=== PATIENT | female | born 1995 | race Caucasian/White ===

== ENCOUNTER → 2020-11-14 08:59 | Outpatient (CLI) | payer OTHER, SELFPAY ==
--- NOTE | ~2020-11-14 | US_ITS ---
US breast RT complete INDICATION: Right breast lump for one month TECHNIQUE: Dedicated complete right breast ultrasound COMPARISON: No prior studies for comparison. FINDINGS: The right breast is composed of normal heterogeneous echotexture without focal solid or cys tic mass. IMPRESSION: 1: Normal right breast ultrasound. BI-RADS CATEGORY 1 - NEGATIVE Reviewed, dictated and finalized at location A.
== END ==
PROVIDERS: Visit Provider Advanced Practice Midwife
DX: N63.10 Unspecified lump in the right breast, unspecified quadrant (principal)
CPT/HCPCS: 76641

== ENCOUNTER 2022-11-18 06:52 | Day surgery (SDC) | payer OTHER, SELFPAY ==
[2022-11-10 12:34] VITALS: BMI 20.5
--- NOTE | 2022-11-10 12:39 | PC.NURSE ---
Report to the Outpatient Waiting Room, entrance under the green pavilion located off [facility], at time 0730 on date 11/18/22. Planned Procedure Time: 0930. Time changes happen often and if your time is changed the preop area will call you the afternoon before. - You and your visitor will be asked to self-screen and do not enter if you have any COVID symptoms. - A mask is optional within the hospital at this time. Patients may have clear liquids (water, carbonated beverages, clear teas, apple juice) until 3 hours prior to surgery with a maximum of 20 ounces. - No food from midnight until time of surgery Take the following medications with a SIP of water the morning of surgery: NONE DO NOT STOP ANY OF YOUR OTHER PRESCRIPTION MEDICATIONS PRIOR TO SURGERY EXCEPT THE FOLLOWING Medications to discontinue per physician: N/A Date to take last dose: N/A Please no make-up, nail lux[place]bourg[place], hairspray, perfume, deodorant, or body powder the day of surgery. No jewelry (including any body piercings) or valuables the day of surgery, leave them at home. Please take a shower or bath the night before, or the morning of, surgery with an antibacterial soap. Wear comfortable, loose fitting clothing. - Jewelry must be removed prior to entering the operating room. Rings and piercings that are not removed may be cut off. - The hospital will not accept responsibility for valuables. - Please leave all valuables, including medications, at home the day of surgery. If you are going home after surgery, a licensed rear load truck driver must drive you home. - NO public transportation without another adult if you receive anesthesia. - We recommend that an adult stay with you for 24 hours following discharge. - We also recommend that you do not drive, make important decision, drink alcoholic beverages, or take any drugs that were not prescribed by your health care provider for at least 24 hours after your discharge time. Follow any additional instructions given to you from your surgeon. If you or anyone in your household have experienced Covid symptoms in the past week, please notify your surgeon or the nurse liaison at the phone number below for possible testing. Telephone instructions given to PT Markell MURPHY and asked if any additional questions and then verbalized understanding. Patient advised to call surgeon office or pre surgery nurse liaison [phone] if any additional questions.
[2022-11-18] VITALS (9 sets, daily range): BP systolic 89–122; BP diastolic 45–71; PULSE 48–69; RESP 12–18; TEMP 36.5–36.8; O2SAT 100; BMI 19.8
[2022-11-18] MEDS: LACTATED RINGERS 1,000 ML 30 ML IV CONT ×2 (07:55→12:36)
[2022-11-18] MEDS: ACETAMINOPHEN 500 MG TABLET 1000 MG PO (08:08)
[2022-11-18] MEDS: KETOROLAC 15 MG/ML VIAL (*BKC) IV PUSH (08:08)
--- NOTE | 2022-11-18 08:12 | SUR.PREOP ---
0812- Notified patient and mother procedure start time will be delayed. Patient and mother verbalized understanding and denying needs at this time.
--- NOTE | 2022-11-18 09:52 | P.PNAN_ITS ---
Anes - Initial Pre Proc Eval Procedure: Operation Date: 11/18/22 09:30 Proposed Procedures p Diagnostic Laparoscopy - Kati Grant MD Date/Time: 11/18/22 09:52 Surgeon: Kati Grant MD Pre Op Diagnosis: pelvic pain Patient Data Age: 27 Gender: F Height: 1.57 m Weight: 49.3 kg Last Vital Signs Temp 98.3 F 11/18/22 07:40 Pulse 69 11/18/22 07:40 Resp 14 11/18/22 07:40 BP 122/71 11/18/22 07:40 Pulse Ox 100 11/18/22 07:40 O2 Del Method Room Air 11/18/22 07:40 Allergies Allergy/AdvReac Type Severity Reaction Status Date / Time pistachio nut Allergy Mild Rash Verified 11/18/22 08:07 Home Medications Medication Instructions Recorded Confirmed Type celecoxib 200 mg capsule 200 mg PO BID PRN Pain 11/10/22 11/18/22 History Patient hx anesthesia problems: none Family hx anesthesia problems: none Results Review: All pre-operative results and documents have been reviewed as part of the pre- operative evaluation. [facility] Social History Social History Smoking status: Never smoker Alcohol intake: current Alcohol use details: 1/MONTH Substance use: never Substance use type: does not use Living arrangements: alone Spiritual care concerns: No Anes - Eval Final PreProcedure Day of Procedure 11/18/22 09:52 Patient weight: normal Heart: regular rate and rhythm Lungs: clear to auscultation Airway: Mallampati scale class II Neurological: alert and oriented Last oral intake: >/= 8 hours ASA classification: II Emergent: no Anesthetic plan: proceed Anesthesia type and monitoring: general GIVS and standard monitoring Results Review: All pre-operative results and documents have been reviewed as part of the pre- operative evaluation. Informed Consent: The patient's anesthetic plan and its attendant risks and benefits were discussed with the patient/family/POA. Questions were solicited and answers provided to the satisfaction of the patient/family/POA.
--- NOTE | 2022-11-18 11:08 | WPDHPUPDATE1 ---
History and Physical Update Update Date/Time: 11/18/22 11:08 History and Physical has been reviewed, including an updated exam of the patient. There are NO changes in the patient's condition. Risks, benefits, and alternatives have been discussed and questions answered. Patient agrees to proceed with procedure.
--- NOTE | 2022-11-18 12:44 | P.OP_ITS ---
Procedure Note - Detailed Date of Procedure 11/18/22 Pre-op Diagnosis pelvic pain Post-op Diagnosis Same (Endometriosis) Procedure Performed Diagnostic laparoscopy, radical resection endometriosis and pelvic peritoneum, laparoscopic bilateral salpingectomy, endometrial ablation with hysteroscopy. Surgeon Kati Grant MD Anesthesia General Indications Pelvic pain Findings Endometriosis with lesions throughout the posterior cul-de-sac, normal-appearing tubes and ovaries. Rectum was adherent to left pelvic sidewall. There was small size spots were scattered through the posterior deep cul-de-sac and the right hemipelvis. There was some small implants on the anterior posterior cul-de-sac over the bladder. Normal-appearing vulva vagina and cervix. Normal- appearing endometrium. Description of Procedure The patient was taken to the operating room. She was prepped and draped in the dorsal lithotomy position after induction general anesthesia. A 5 mm incision was made with a scalpel on the abdominal skin in the left upper quadrant of the abdomen. A 5 mm trocar was inserted into the intra-abdominal cavity under direct visualization the scope. In the same fashion, a 5 mm left lower quadrant trocar was inserted and a 5 mm infraumbilical trocar was inserted. The left ovary ws suspended to the anterior pelvic wall bilaterally. This was done with a Avery-Evon suture Passer that was inserted in the a left lower quadrants and into the abdomen. Using an 0 Vicryl, the needle was passed through the ovary, the suture was released, the sutures grasped on the other side of the ovary and drawn up through the abdominal wall to the outside and held in place with a hemostat. A RADHA manipulator is placed in the intrauterine cavity. This was done with the speculum and tenaculum. The bulb was inflated with air. The peritoneum in the posterior cul-de-sac was removed from the left hemipelvis. This was done using sharp and blunt dissection along with cautery. The ureter on the left was identified and ureterolysis was performed from the pelvic brim down to the uterine arteries. Laterally the peritoneum was removed from the suspensory ligament and the infundibulopelvic ligament moving medially to the rectum. Essentially All the peritoneum in the posterior cul-de-sac was removed on the left. areas on the deep posterior cul-de-sac and the right pelvic sidewall were cauterized. There were numerous small endometrial implants that were cauterized. There were some areas and the anterior cul-de-sac 2 were small and gently cauterized as well as on the right ovary. The pelvis was irrigated vigorously. a sheet ofInterceed were placed in the left hemipelvisese The pneumoperitoneum was reduced. The trocars were removed. Skin was closed with subcuticular 4 micro. The patient's incisions were covered with Dermabond. She was taken recovery room in stable condition. Sponge lap and needle counts were correct x2. Estimated Blood Loss -20.0 Urine Output -25.0 Complications No immediate complications Condition Stable Disposition Same day
[2022-11-18] MEDS: ONDANSETRON INJ 4 MG/2 ML VIAL IV PUSH (14:09)
[2022-11-18] MEDS: oxyCODONE HCL (*CRX) 5 MG TAB IR PO (14:27)
== END 2022-11-18 15:10 | disposition home or self-care (01) ==
PROVIDERS: PCP Internal Medicine; Visit Provider Obstetrics & Gynecology
PROC: (CPT 49320; principal; 2022-11-18 09:30)
DX: N80.319 Endometriosis of the anterior cul-de-sac, unspecified depth (principal); N80.329 Endometriosis of the posterior cul-de-sac, unspecified depth; N80.399 Endometriosis of the pelvic peritoneum, other specified sites, unspecified depth; N73.6 Female pelvic peritoneal adhesions (postinfective); R10.2 Pelvic and perineal pain
CPT/HCPCS: 58662; 88305; A9270; J1100; J1170; J1885; J2250; J2405; J2704; J2710; J3010; J7030; J7120

== ENCOUNTER 2025-01-24 02:16 | Day surgery (SDC) | payer OTHER, SELFPAY ==
[2025-01-23 08:49] VITALS: BMI 22.4
--- NOTE | 2025-01-23 09:20 | PC.NURSE ---
Report to the Outpatient Waiting Room, entrance under the green pavilion located off [facility], at time __06:00AM on date _01/24/25 . Planned Procedure Time: _07:30AM .? Time changes happen often and if your time is changed the preop area will call you the afternoon before. - You and your visitor will be asked to self-screen and do not enter if you have any COVID symptoms. Please call surgeon if you need to reschedule. - A mask is optional within the hospital at this time. Patients may have clear liquids (water, carbonated beverages, clear teas, apple juice) until 3 hours prior to surgery with a maximum of 20 ounces. - No food from midnight until time of surgery and no smoking, or chewing tobacco (or any form of nicotine). No chewing gum, candy or mints. Take only the following medications with a SIP of water on the morning of surgery: ___ALBUTEROL PRN DO NOT STOP ANY OF YOUR OTHER PRESCRIPTION MEDICATIONS PRIOR TO SURGERY EXCEPT THE FOLLOWING Hold all vitamins and supplements for 3 days per anesthesiologist. Medications to discontinue per physician NONE Date to take last dose___NONE Please no make-up, nail sl[place], hairspray, perfume, deodorant, or body powder the day of surgery.? No jewelry (including any body piercings) or valuables the day of surgery, leave them at home.? Please take a shower or bath the night before, or the morning of, surgery with an antibacterial soap.? Wear comfortable, loose fitting clothing.? Children are encouraged to wear pajamas. - Jewelry must be removed prior to entering the operating room.? Rings and piercings that are not removed may be cut off. - The hospital will not accept responsibility for valuables.? - Please leave all valuables, including medications, at home the day of surgery. If you are going home after surgery, a licensed armored car driver must drive you home.? - NO public transportation without another adult if you receive anesthesia. - We recommend that an adult stay with you for 24 hours following discharge. - We also recommend that you do not drive, make important decision, drink alcoholic beverages, or take any drugs that were not prescribed by your health care provider for at least 24 hours after your discharge Follow any additional instructions given to you from your surgeon. Telephone instructions given to __MEGAN and asked if any additional questions and then verbalized understanding. Patient advised to call surgeon office or pre surgery nurse liaison [phone] if any additional questions.
[2025-01-24] VITALS (7 sets, daily range): BP systolic 100–117; BP diastolic 45–82; PULSE 64–90; RESP 11–20; TEMP 36.2–36.8; O2SAT 100
--- OUTSIDE RECORDS SUMMARY | 2025-01-24 02:33 | XMS_ITS | Data Portability ---
Author Organization [facility] Address [address] [place] [address] Care Team Providers Care Aba Therapist Name Role Phone BRYANT HAYNES Primary Care Provider [phone] Assessment Encounter Date Assessment Date Assessment LastModified by Organization Details LastModified Time 11/26/2023 11/26/2023 Annual gynecological exam performed. Patient will come back in a year unless there are new symptoms. [email or web address] Not available 11/26/2023 13:51:53 Plan of Treatment Reminders Order Date Submit Date Provider Last Modified By Organization Details Last Modified Time Details Appointments SURG Diagnosti c Lap 2024 07:30A Juan GRANT MD Not available Not available Not available SURG POST OP 2024 04:00P Juan GRANT MD Not available Not available Not available Lab None recorded. Referral None recorded. Procedures None recorded. Surgeries laparosco py, diagnosti c (SURG) 2024 025 [id number] [facility], [address], [place], [address], 12/12/2024 11:01:09 Imaging US, pelvis 2024 025 [email or web address] [place] [facility] [address], [place], [address], 11/28/2024 21:37:50 US, transvagi nal 2024 025 [email or web address] [facility], [place], [address], 11/28/2024 21:37:50 US, pelvis, complete 2024 025 [email or web address] [facility], [place], [address], 12/08/2024 10:46:19 Medication Orders Lessina 0.1 mg-20 mcg tablet 2023 024 [id number], [address], [place], [place], [id number], 11/26/2023 14:08:35 Patient TargetsNo targets recorded. Patient InstructionsNo instructions recorded. Reason for Referral None Reported. 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 Elect pinashahriar perez neris d by Mario Elmore , CT on 2023 at 6:18 PM ----- ----- ----- ----- ----- ----- ----- ----- ----- ----- ----- ----- ----- ----- ----- ----- ----- ---- COMME NT: This speci men was revie wed by a Cytot echno logis t and/o r Patho logis t (as indic ated in this repor t) after evalu ation using the Thinp rep Imagi ng Syste m. CLINI MEGHAN INFOR MATIO N: Menst rual Statu s: LMP (if appli cable ): Clini meghan Histo ry/Pr eviou s Pap: Type of Neopl reginald (if appli cable ): Signi fican t Clini meghan Findi ngs: Other Histo ry: Hormo kristin (if appli cable ): PAP EDUCA IRIS L NOTE: The Pap Test is a scree christine test with an inher ent false negat benny rate. Liqui d-bas ed sampl ing may decre ase, but will not elimi katarzyna, false negat benny resul ts. A negat benny resul t does not precl ude the prese nce and/o r devel opmen t of disea se, since the prese nce of abnor mal cells in the sampl e depen ds on the locat ion of the lesio n and sampl ing techn ique. Christopher nued regul ar scree christine is the best metho d of cance r preve ntion . If repor cordell cytol ogic findi ng do not corre late with physi meghan and/o r histo rical findi ngs, furth er inves tigat ion is recom chapo d, as clinjeffery smalls nted. Not Available [facility] (Lab) [address], [place], [address], 12/01/2023 19:22:17 11/29/19 25 11/28/2024 US, pelvi s No observ ation record ed. [email or web address] [place] [address], [place], [address], 11/28/2024 17:30:12 11/29/19 25 11/28/2024 US, trans vagin al No observ ation record ed. [email or web address] [place] [address], [place], [address], 11/28/2024 17:30:26 11/29/19 25 11/28/2024 US, pelvi s No observ ation record ed. [email or web address] [address] [address], [place], [address], 12/11/2024 16:38:00 Result Notes None recorded. 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 10:36:[address] Concept Completed 201911/06/2020 Encntr for routine child health exam w/o abnormal findings ;Recorde d Elsewher e: No Locat ion: [facility] S ource: [facility] [employer] agusto: N Beccati ce ID: 0001 Mathew lable Time: 08:45:[address] [facility] 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 1 10:36:54 Problem Notes None recorded. Procedures Surgical History Date Name Laterality Status Provider Name and Address Organization Details Recorded Time 11/26/19 24 Date of Last Pap Smear completed Aixa Greco [facility] 11/23/2024 15:02:20 11/19/19 23 LAPAROSCOPY, DIAGNOSTIC (SURG) completed Ashley Peterson [facility] 11/19/2022 10:11:48 06/15/20 16 colonoscopy completed Aicha Recio [facility]- [address], [place], [address], [facility] 06/30/2022 15:54:34 11/21/19 16 Date of Last Colonoscopy completed Maxine Montes [facility] 06/30/2022 15:47:53 Imaging Results None recorded. Procedure Notes None recorded. Medical Equipment None Reported. Allergies Allergen ID Allergen Name Allergen Category Reaction Reaction Severity Criticality Documentation Date Start Date Code Code System Note Provider Name and Address Organization Details Recorded Time pistachio nut allergeni c extract food Not available Not available Not available 11/23/2024 [address] [facility] 5 15:01:41 Medications Name Sig Start Date Stop Date Status Note LastModified by Organization Details LastModified Time celecoxib 200 mg capsule TAKE 1 CAPSULE BY MOUTH TWICE DAILY active Not Available Not Available No t Available azithromy que 250 mg tablet TAKE 2 TABLETS BY MOUTH FOR 1 DAY THEN TAKE 1 TABLET BY MOUTH DAILY FOR 4 DAYS 11/23 completed Not Available Not Available Not Available benzonata te 200 mg capsule 11/23 completed Not Available Not Available Not Available hydrocodo ne 5 mg-acetam inophen 325 mg tablet TAKE 1 TABLET BY MOUTH EVERY 4 HOURS NEEDED FOR PAIN 11/25 completed Not Available Not Available Not Available famotidin e 40 mg tablet 11/25 completed Not Available Not Available Not Available Nexium 20 mg capsule,d elayed release take 1 capsule by oral route every day at least 1 hour before a meal swallowi ng whole. Do not crush or chew granules . 11/06 completed Prescrib ed Phuong e: Yes Loca tion: Diane cohen [facility] odify By: sindy marrufo DateTime : 09/09/19 16 09:00:00 AM Not Available Not Available Not Available albuterol sulfate HFA 90 mcg/actua tion aerosol inhaler INHALE 2 PUFFS BY MOUTH EVERY 4 HOURS NEEDED FOR WHEEZING 11/25 completed Not Available Not Available Not Available fluticaso ne propionat e 50 mcg/actua tion nasal spray,eulogio pension SHAKE LIQUID AND USE 2 SPRAYS IN EACH NOSTRIL DAILY 11/25 completed Not Available Not Available Not Available amoxicill in 875 mg-potass ium clavulana te 125 mg tablet TAKE 1 TABLET BY MOUTH TWICE DAILY FOR 7 DAYS 11/23 completed Not Available Not Available Not Available Lessina 0.1 mg-20 mcg tablet TAKE 1 TABLET BY MOUTH EVERY DAY SKIPPING PLACEBOS active Not Available Not Available No t Available Nexium 11/06 completed Not Available Not Available Not Available ProChambe r USE WITH ALBUTERO L INHALER 12/08 completed Not Available Not Available Not Available Hypercare 15 % (w/v) topical liquid 06/30 completed Not Available Not Available Not Available baclofen 5 mg tablet TAKE 1 TABLET BY MOUTH ON DAY 2 OF MENSTRUA L CYCLE IF NEEDED. MAY TAKE WITH AN NSAID. MAY CAUSE DROWSINE SS 11/25 completed Not Available Not Available Not Available Vitals Date Recorded Body height Body mass index (BMI) Body weight Systolic And Diastolic Provider Name and Address Organization Details Last Updated DateTime 11/23/2024 157.48 cm 19.9 kg/m2 66001.57 g 118/70 mm[Hg] Aixa Greco [facility] 11/23/2024 15:02:11 Date Recorded Body height Body mass index (BMI) Body weight Systolic And Diastolic Provider Name and Address Organization Details Last Updated DateTime 11/25/2022 157.48 cm 19.8 kg/m2 86413.98 g 142/78 mm[Hg] Karen Mitchell [facility] 11/25/2022 16:22:38 Date Recorded Body height Body mass index (BMI) Body weight Systolic And Diastolic Provider Name and Address Organization Details Last Updated DateTime 11/26/2023 157.48 cm 20.3 kg/m2 46135.75 g 119/81 mm[Hg] Julieta [facility] 11/26/2023 13:54:28 Date Recorded Body height Body mass index (BMI) Body weight Systolic And Diastolic Provider Name and Address Organization Details Last Updated DateTime 12/08/2024 157.48 cm 20.5 kg/m2 60399.35 g 109/71 mm[Hg] Julieta [facility] 12/08/2024 11:57:12 Social History Question Answer Notes LastModified by Organizat ion Details LastModified Time Tobacco Smoking Status Never Smoker Viridiana Stephy [facility] 11/25/2022 16:14:01 If You Are , What Was Your Level Of Alcohol Consumption Prior To ? None [email or web address] Information not available 11/25/2022 How Many Years Have You Consumed Alcohol? 7 Information not available 06/30/2022 Are You Blind Or Do You Have Difficulty Seeing? No [email or web address] Information n ot available 11/08/2020 What Is Your Level Of Caffeine Consumption? Moderate [email or web address] Information not available 11/08/2020 How Much Tobacco Do You Chew? None Information not available 06/30/2022 In The 14 Days Before Symptom Onset, Have You Had Close Contact With A Laboratory-confirm ed COVID-19 While That Case Was Ill? No [email or web address] Information n ot available 11/08/2020 In The 14 Days Before Symptom Onset, Have You Had Close Contact With A Person Who Is Under Investigation For COVID-19 While That Person Was Ill? No [email or web address] Information not available 11/08/2020 Have You Been To An Area Known To Be High Risk For COVID-19? No Information not available 11/08/2020 Are You Deaf Or Do You Have Serious Difficulty Hearing? No Information not available 11/08/2020 What Type Of Diet Are You Following? REGULAR [email or web address] Information n ot available 11/08/2020 What Is The Highest Grade Or Level Of School You Have Completed Or The Highest Degree You Have Received? [id number] Information not available 06/30/2022 Are There Any Guns Present In Your Home? No Information not available 06/30/2022 Have You Ever Been Counseled For Unhealthy Alcohol Use? No [email or web address] Information not available 11/25/2022 Do You Use Protection During Sex? Always Information not available 06/30/2022 Do You Use Your Seat Belt Or Car Seat Routinely? Yes [email or web address] Information not available 11/08/2020 Do You Have Smoke And Carbon Monoxide Detectors In Your Home? Yes [email or web address] Information not available 11/08/2020 How Much Tobacco Do You Smoke? No Information not available 06/30/2022 Do You Use Sunscreen Routinely? Yes [email or web address] Information not available 11/08/2020 Has Tobacco Cessation Counseling Been Provided? No [email or web address] Information not available 11/25/2022 Have You Used IV Drugs? No Information not available 06/30/2022 Do You Have Difficulty Walking Or Climbing Stairs? No [email or web address] Information not available 11/25/2022 Sex: Unknown Functional Status Question Answer Note LastModified by Organizat ion Details LastModified Time Do you use any illicit or recreational drugs? No Information not available 11/08/2020 Do you or have you ever used any other forms of tobacco or nicotine? No [email or web address] Information not available 11/25/2022 What is your level of alcohol consumption? Occasional [email or web address] Information not available 11/08/2020 Are you able to walk? YESWOREST [email or web address] Information not available 11/08/2020 Are you able to care for yourself? 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 No [email or web address] Information not available 11/25/2022 What is your exercise level? Moderate Information not available 06/30/2022 Mental Status Question Answer Note LastModified by Organization D etails LastModified Time Do you feel stressed (tense, restless, nervous, or anxious, or unable to sleep at night)? [id number] [email or web address] Information not available 11/08/2020 Family History Relationship Description Onset Age of this Age Resolved Age Notes LastModified by Organization Details LastModified Time Maternal Grandmother Carcinoma in situ of breast [email or web address] Not available 11/11 11:22:56 Maternal Grandmother Malignant tumor of breast [email or web address] Not available 06/12 15:47:50 Mother Hypertensive disorder [email or web address] Not available 06/12 15:47:50 Maternal Grandfather Disorder of lung vschroedter Not available 06/12 15:47:50 Maternal Grandfather Hypertensive disorder [email or web address] Not available 06/12 15:47:50 Maternal Grandfather Heart disease [email or web address] Not available 06/12 15:47:50 Maternal Grandfather Disorder of thyroid gland vschroedter Not available 06/12 15:47:50 Medical History Condition Response Anemia Y GI Problems Y Gynecological History Statement/Question Response Abnormal Pap N Flow Moderate Date of LMP 11/09/2024 N On BCP's at Conception? N STIs/STDs N Was last menstrual period normal N HPV Vaccine N Duration of Flow (days) 5 Current Control Method BCPs Date of control 07/12/2019 Are cycles usually normal Y Date of Last Colonoscopy 11/21/2015 Sexually Active? Y Condoms Menses Monthly N Age of first menstrual cycle 14 Date of Last Pap Smear 11/26/2023 Sexual Problems? N LMP Approximate Desired Control Method BCPs N Obstetrics History GPAL:G 0 P 0 0 0 0 Type Value Living 0 Total 0 Past Encounters Encounter ID Performer Location Encounter Start Date Encounter Closed Date Diagnosis/Indication Diagnosis SNOMED-CT Code Diagnosis ICD10 Code Diagnosis Note [id number] Aicha Recio [facility] [address] [address] 11/09/2019 09:38:49 11/09/2019 14:20:12 Secondary dysmenorrhea 34302712 N94.5 Z30.49 Patient is here today for a medicaton check of control. She voices goals of therapy have been met with use of this therapy. She denies neg side effects. She is eating, drinking, sleeping well; moods are stable & periods are well regulated. Wishes to continue this method of BC. Appropriat e to continue this medication . Total time of virtual-ZO OM visit was approx 15 mins with >50% consisting of counseling , education of patient's plan of care. [id number] [facility] [address],[place] [address] 11/06/2020 10:15:13 11/06/2020 11:13:54 Breast lump [id number] N63.0 [id number] Aicha Recio [facility] [address],[place] [address] 06/30/2022 15:32:47 07/02/2022 15:04:59 Pain in pelvis 77077511 R10.2 Update USConsider premedicat ion with NSAID and may use muscle relaxer at HS on day 2 of menstrual cycle.Coun seled on these medication s & their use.Consid er updated labs if needed moving forward. [id number] Keith Grant MD [facility] [address],[place] [address] 07/07/2022 11:20:25 07/07/2022 14:53:37 Pain in pelvis 11314319 R10.2 [id number] MISHA [facility] [address] [address] 07/15/2022 16:43:30 07/15/2022 18:20:52 Secondary dysmenorrhea 54916102 N94.5 Z30.49 Today we reviewed US which was wnl.She had not had a chance to complete full pre-medica tion regimen previously discussed. Her cycle started 4 days earlier than expected & the Celebrex wasn't ready in time.Does feel the Baclofen helped for a few hours.Hope ful that adding the Celebrex 2 days prior to onset of her cycle will help predictabl e dysmenorrh ea.We agreed she would reach out via port & let us know if pre-medica tion regimen worked.If she is happy with this then we can continue to use monthly at the times of menses.If she feels this is not meeting her goals we agreed upon restarting the previous BCP that she was on which did help similar issues on the past. Lessina /20mcg pill & then a Med check in 2-3mos will be required. Time spent in visit is a total of 15 mins with at least 50% of visit consisting of counseling and review of plan of care. [id number] Keith Grant MD [facility] [address] [address] 10/08/2022 16:47:33 10/08/2022 18:12:30 Pain in pelvis 64725393 R10.2 this patient is a 27-year-ol d female who presents for pelvic pain. She has severe dysmenorrh ea. She has been treated with control pills in the past but continues to have pain. She has a family history of endometrio sis. We talked about her symptoms and they were consistent with endometrio sis. We spent 40 minutes face-to-fa ce. More than 50% was counseling we talked about endometrio sis, etiology, natural history, treatment. We talked about diagnostic laparoscop y in detail we talked about the procedure, incisions, recovery, images. We shared images of the procedure. She is adrien perez diagnostic laparoscop y. She will contact us if she is ready to move forward. [id number] Keith Grant MD [facility] [address],[place] [address] 11/11/2022 17:07:29 11/11/2022 18:13:20 Pain in pelvis 99628425 R10.2 this patient is a 27-year-ol d female who presents for pelvic pain. She has severe dysmenorrh ea. we have agreed to proceed with diagnostic laparoscop y. She understand s risks, benefits, and alternativ es. She has completed the informed consent process and is ready to proceed. [id number] Keith Grant MD [facility] [address],[place] [address] 11/20/2022 09:58:25 11/20/2022 10:02:04 [id number] Keith Grant MD [facility] [address],[place] [address] 11/25/2022 16:13:31 11/25/2022 17:22:13 Endometriosis of pelvis 95709161 N80.9 this patient is a 27-year-ol d female with endometrio sis. We spent more than 40 minutes face-to-fa ce. I counseled her extensivel y on adjunct treatment for endometrio sis. We talked about her biopsy results. She was given written informatio n about adjunct treatment. We talked about the risks and benefits of each. We talked about retrograde menstruati on in continuous contracept ion. About childbeari ng. Talked about the natural history and course of endometrio sis. She is going to consider her treatment options and let us know what she is going to proceed with. Likely be continuous oral contracept benny pills, combined oral contracept benny pills. [id number] [facility] [address],[place] [address] 11/26/2023 13:31:58 11/30/2023 14:48:03 Gynecologic examination 37106539 Z01.419 Take Calcium with Vitamin D 1200mg daily if not receiving in daily diet. It is strongly advised to have an annual flu shot and up can obtain at most pharmacies . If you have not had a TDap shot in the last 10 years you should obtain one as well. Discussed with patient & provided with informatio n regarding Gardisil vaccine to prevent the 4 strains for HPV that cause cervical cancer if under age 26. Encourage safe sexual practices, to use condoms and limit partners if not already in a monogamous relationsh ip. Do monthly self breast exams. Have mammogram yearly or every other year depending on family history. BRCA testing is now available for patients with strong genetic history of female cancer. If interested contact the office. Engage in daily exercise of low impact aerobic exercise 45-60 minutes 4-5 times weekly. Avoid tobacco and illicit drugs as well as using moderation with alcohol intake less than 1-2 8 oz beverages daily. This lifestyle behavior pattern will lead to less health conditions and longer life span. If BMI greater than 25 weight watchers or dietary consult advised. Patient received above instructio ns, and questions have been answered. If you have any questions please call or respond to this email. Patient was made aware of the patient portal and may obtain a paper copy of today's plan if desired. Pap sentSTD Screen declinedGe netic Screen discussedC olon Screen naDexa Screen naRoutine Labs na Contracept ion care management [id number] Z30.9 Happy on OCPRF sent x 1yr [id number] Keith Grant MD [facility] [address] [address] 11/23/2024 14:42:19 11/23/2024 15:53:25 Pain in pelvis 21307152 R10.2 Reviewed endometrio sis in general, symptoms attributab le to it, and potential effects on future fertility. Discussed chronic nature of disease, and frequent need for suppressio n until menopause. Reviewed medical therapies (pros/cons , risks/bene fits of each) and surgical approaches to treatment, including conservati ve procedures and definitive surgery.Re commended updated pelvic ultrasound and f/u with to further discuss treatment options (hormonal vs surgical). Patient may be interested in Depo Provera or Mirena IUD.Contac t clinic if pelvic pain increases in frequency or intensity. Also notify clinic of any new symptoms associated with pelvic pain. [id number] Keith Grant MD [facility] [address] [address] 11/28/2024 16:57:11 11/28/2024 17:33:25 Pelvic and perineal pain 805594655 R10.2 this patient is a 27-year-ol d female who presents for pelvic pain. She has severe dysmenorrh ea. we have agreed to proceed with diagnostic laparoscop y. She understand s risks, benefits, and alternativ es. She has completed the informed consent process and is ready to proceed. [id number] Keith Grant MD [facility] [address] [address] 12/08/2024 11:21:56 12/08/2024 12:30:21 Pain in pelvis 06375037 R10.2 Endometrio sis (clinical) 453352811 N80.9 this patient is a 29-year-ol d female. She has recurrent pelvic pain and a history of endometrio sis. She has had surgically removed endometrio sis and biopsy confirmed endometrio sis. We discussed treatment options again today. Patient would like to proceed with diagnostic laparoscop y. The patient understand s the procedure. The procedure was described to the patient in great detail. the patient also understand s the risks. The risks were also explained in detail. She understand s that injuries May occur during surgery. She understand s these injuries can result in hospitaliz ation, more surgery, and severe illness. She understand s there is risk of hemorrhage and infection. I spent over 20 minutes on the patient's care in total. Health Concerns Section Related Observation LastModified by Organization Detai ls LastModified Time None Recorded Concern Status LastModified by Organization Details LastModified Time None Recorded Advance Directives Directive None Recorded Payers Insurance Date Sequence Insurance Name Policy Number Policy Ramirez Covered Member ID Ramirez Member ID Guarantor Name 01/21/2025 1 [employer] [id number] Natalie Catherine [id number] Natalie Jin 11/09/2019 1 [facility] - [employer] CHOICE POS II (POS) Eddie Catherine [id number] Natalie [facility] 11/09/[address] [facility] - AETNA (PPO) [id number] Eddie Jin [id number] Natalie [facility] 11/09/[address] [facility] Gisell Morgan [facility] [id number] [facility] 11/09/[address] [facility] Eddie [facility] [id number] [facility] 06/18/[address] [facility] Gisell Morgan [facility] [id number] [facility] 12/08/2024 1 [facility] [id number] Natalie Jin [id number] Natalie [facility] 12/08/2024 1 [facility] [id number] Natalie Cohen [facility] [id number] [facility] Notes Date Note Type Note Provider Name and Address Organization Details Recorded Time 11/25/2022 text/html this patient is a 27-year-old female with endometriosis. We spent more than 40 minutes [id number]. I counseled her extensively on adjunct treatment for endometriosis. We talked about her biopsy results. She was given written information about adjunct treatment. We talked about the risks and benefits of each. We talked about retrograde menstruation in continuous contraception. About childbearing. Talked about the natural history and course of endometriosis. She is going to consider her treatment options and let us know what she is going to proceed with. Likely be continuous oral contraceptive pills, combined oral contraceptive pills. Keith Grant MD [address], [place], [address], [facility] 11/25/2022 17:17:29 11/26/2023 text/html Annual GYNReport ed bypatient.Menstrual cycle:Normal menses Urinary symptoms:No hematuria; No incontinence Vulva:No genital lesion Vagina:Normal vaginal discharge Breast:No breast pain; No breast lump; No nipple discharge Current Contraception:Satisf ied with current contraception; Oral contraceptives Sexual complaints:No sexual complaints; No pain during intercourse; Normal libido Menopausal Symptoms:No menopausal symptoms; Normal vaginal lubrication Psychological symptoms:No depression; No anxiety; No PMDD Preventive measures:Encourage self breast examination; Encourage regular exercise; Encourage no tobacco use; Encourage regular mammograms starting age 40 MISHA Marrufo- [address], [place], [address], [facility] 11/30/2023 14:05:41 11/23/2024 text/html 29 y/o female presents with c/o severe pelvic pain during ovulation and first two days of period over the past three months.Patient reports history of endometriosis and had diagnostic laparoscopy performed by Dr. Grant in 2022.Patient states that she then tried an OCP continuously for one year, which helped her pain. Patient reports that she stopped taking the pill because she did not like how the pill made her feel and the mood swings it caused.Cycles q28 days, last 5 days, with moderate to heavy flow.Patient states that she does not prefer to be on control.Neg urinary sx'sNeg GI sx'sNeg N/V/F/C/DNeg Vag d/c, odor, irritation, itching DUARTE TREADWELL NP [address], [place], [address], [facility] 11/23/2024 15:37:48 12/08/2024 text/html this patient is a 29-year-old female. She has recurrent pelvic pain and a history of endometriosis. She has had surgically removed endometriosis and biopsy confirmed endometriosis. We discussed treatment options again today. Patient would like to proceed with diagnostic laparoscopy. The patient understands the procedure. The procedure was described to the patient in great detail. the patient also understands the risks. The risks were also explained in detail. She understands that injuries May occur during surgery. She understands these injuries can result in hospitalization, more surgery, and severe illness. She understands there is risk of hemorrhage and infection. I spent over 20 minutes on the patient's care in total. Keith Grant MD [address], [place], [address], [facility] 12/08/2024 12:29:34 OBGyn Episode No OBEpisode recorded.
--- OUTSIDE RECORDS SUMMARY | 2025-01-24 02:33 | XMS_ITS | Referral Summary ---
Author Organization [facility] Medical Office Building A Address [address] [place] [address] Care Team Providers Care Windows Software Engineer Name Role Phone Juhi King NP Primary Care Provider Keith Grant MD Unavailable [phone] Allergies Active Allergy Reactions Criticality Noted Date Comments Kiwi Swelling Medium 04/29/2023 Pistachio Nut Swelling Medium 04/29/2023 Sulfa (Sulfonamide Antibiotics) Rash Medium 08/2018 Medications celecoxib (CeleBREX) 200 mg capsule Active albuterol HFA (PROVENTIL HFA,VENTOLIN HFA,PROAIR HFA) 90 mcg/actuation inhalerIndicatio ns:Viral URI with cough Inhale 2 puffs every 4 (four) hours as needed for wheezing 1 each 4 Active inhalational spacing device (Aerochamber MV) spacerIndication s:Lower respiratory infection Use with albuterol inhaler 1 each 4 Active Active Problems Problem Noted Date Diagnosed Date Body mass index (BMI) of 19.0 to 19.9 in adult 0 08/09/2024 Assessment & Plan (08/09/2024 8:33 AM SKIVER MACHINE OPERATOR): Wt Readings from Last 3 Encounters: 08/09/24 49.9 kg (110 lb) 07/19/24 48.5 kg (107 lb) 07/06/24 48.5 kg (107 lb) Body mass index is 19.37 kg/m . -Stable, not at goal of <30 bmi -Discussed recommendations for exercise at least 30 minutes moderate to vigorous exercise as tolerated most days of the week. (minimum 150 minutes weekly) -Discussed importance of well-balanced diet Laryngopharyngeal reflux (LPR) 09/22/2023 Assessment & Plan (08/09/2024 8:41 AM SKIVER MACHINE OPERATOR): -chronic, controlled -patient currently takes a digestion supplement -previously took pepcid -patient encouraged to continue avoiding trigger foods and remaining upright at least 30 minutes after eating or drinking -continue current treatment plan Assessment & Plan (09/22/2023 3:16 PM CDT): Pepcid 40 mg at bedtime for 3 months, then if improvement noted, decrease to 20 mg for 3 months If no improvement after 3 months, restarting Astelin (azelastine) 2 sprays into each nostril while looking down over the sink, do not sniff in or blow nose after use for at least 30 minutes twice daily for 6 weeks Acute left-sided low back pain with left-sided s ciatica 08/03/2023 Assessment & Plan (08/03/2023 2:22 PM SKIVER MACHINE OPERATOR): Acute on chronic problem-this is a recurring problem with worsening x 1 day with pain post fall on ice Ordered X-ray lumbar spine Ordered PT eval and treat for low back pain Alternate ice and heat therapy at 20 minute intervals Continue Celebrex 200 mg as directed OTC Tylenol- use as directed Continue to monitor Endometriosis 04/29/2023 Assessment & Plan (08/09/2024 8:47 AM SKIVER MACHINE OPERATOR): -Chronic, controlled -Follows with commercial real estate broker -Currently takes oral contraceptive -Previous laparoscopy procedure -Up-to-date on Pap smear -Continue current treatment plan with specialist Assessment & Plan (08/03/2023 2:23 PM SKIVER MACHINE OPERATOR): Condition is stable Follows OBGYN Follow-up with Dr. Grant as scheduled Continue with current oral control as directed by your OBGYN Ordered PT eval and tx for pelvic floor exercise Continue with TENs unit as directed by water supervisor Assessment & Plan (04/29/2023 8:06 AM CDT): Condition is stable Follows OBGYN Will obtain records from [facility]-patient reports surgery in November of 2022 Follow-up with Dr. Grant as scheduled Continue with current oral control as directed by your OBGYN Preventative health care 04/29/2023 Assessment & Plan (08/09/2024 8:49 AM SKIVER MACHINE OPERATOR): - New or chronic worsening conditions: Recent pneumonia - Mental health: no significant psychiatric/mental health conditions affecting her day to day functioning - Dental health: Up to date with regular dental care and cleaning. Discussed importance of regular tooth brushing, flossing, and dental visits. - Nutrition: Stressed importance of moderation in sodium/caffeine intake, saturated fat and cholesterol, caloric balance, sufficient intake of fresh fruits, vegetables - Exercise: Stressed the importance of regular exercise - Immunizations: Age and sex appropriate immunizations reviewed and offered - Cervical Cancer screening: Up-to-date - Breast Cancer screening: Not indicated at this time - Colon cancer screening: Not indicated at this time - Lung cancer screening: Not indicated at this time - Bone desnity/osteoporosis screening: Not indicated at this time - control: Oral contraceptive Assessment & Plan (04/29/2023 8:10 AM CDT): Recommend flu vaccine every April-encouraged to obtain in 7-10 days after sinusitis has cleared, recommend COVID booster, tetanus booster every 10 years-will postpone until next annual. Well-woman exams and cervical cancer screening as directed by your OBGYN Follow-up in 1 year-sooner p.r.n. 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 Discussed tonsil stones and throat irritation. Recommended water intake and salt gargles. Recommended steroid nasal spray [id number] for ear popping or eustachian tube dysfunction. Can take denc-qrp-mcyoxmr antihistamines as well. Can have referral to ear nose and throat as needed. Patient wants to hold off but will call back if she decides she wants referral. Fever 05/03/2023 08/09/2024 Assessment & Plan (05/03/2023 1:46 PM CDT): Acute problem- this is a new problem Order covid and flu tests- negative results for both Stay hydrated- continue to push fluids OTC Tylenol-use as directed for fever or headache Avoid use of Nyquil Follow up as scheduled- sooner prn if no improvement Acute non-recurrent frontal sinusitis 04/29/2023 08/09/2024 Assessment & Plan (05/03/2023 1:47 PM CDT): Acute problem- not improving Ordered Augmentin 875-125 mg- take 1 tablet bid x 10 days Ordered azelastine 137 mcg- 1 spray to each nostril bid Stop flonase Encouraged to take OTC Mucinex d as directed No smoking around patient, no animals in bedroom, keep windows closed, no hanging clothes on the line Encouraged to zyrtec/claritin/irvin in the am Saline rinse in the am Saline rinse about 15 min before bed Recommend staying on the above treatment from the beginning of September to end of November Come off of meds if possible during the summer Then restart on meds mid to late February until Thanksgiving Come off of meds if possible during the winter Assessment & Plan (04/29/2023 8:08 AM CDT): Acute problem-this is a new patient and a new problem with an onset of 1 week ago Ordered azithromycin 250 mg-take 2 tablets on day 1, then 1 tablet daily for 4 days until gone Ordered fluticasone 50 mcg-2 sprays each nostril every evening No smoking around patient, no animals in bedroom, keep windows closed, no hanging clothes on the line Take zyrtec/claritin/irvin in the am Saline rinse in the am Flonase 2 sprays each nostril every evening Saline rinse about 15 min before bed Recommend staying on the above treatment from the beginning of September to end of November Come off of meds if possible during the summer Then restart on meds mid to late February until Thanksgiving Come off of meds if possible during the winter Body mass index (BMI) 20.0-20.9, adult 04/29/2023 08/09/2024 Assessment & Plan (04/29/2023 8:11 AM CDT): Patient's weight is good and stable Encouraged to continue with a healthy diet and exercise regimen of at least 150 minutes per week Continue to monitor Chronic pain of left wrist 09/20/2019 0 09/20/2019 Assessment & Plan (09/20/2019 10:24 AM CDT): Clinical exam correlates more with tendinopathy of extensor akil flexor given worsening sx, presentation. Recommending x-ray to rule out avulsion fractures, OA recommending diclofenac cream, bracing ice/heat and consultation to hand specialist to discuss need for clinic ultrasound in further evaluation VS MRI for diagnosis. Lifting/exercise restrictions also advised. Change in multiple pigmented skin lesions 08/15/2018 04/29/2023 Assessment & Plan (08/15/2018 2:52 PM SKIVER MACHINE OPERATOR): Requested by infectious disease for biopsy of these lesions. The patient was informed the procedure, risks, benefits, to which she agrees. Will have in office procedure today. Tinea corporis 07/04/2018 01/08/2020 Assessment & Plan (07/04/2018 8:47 AM SKIVER MACHINE OPERATOR): It does not appear as though the ketoconazole caused her acute pruritic rash and ringworm is slightly moist in office. I encouraged her to apply ketoconazole cream twice daily while tapering down off corticosteroids to ensure clearance of tinea infection. Indications to follow up in office was provided Irritant contact dermatitis 07/04/2018 01/08/2020 Assessment & Plan (07/04/2018 8:47 AM SKIVER MACHINE OPERATOR): Continue with daily antihistamine use, will mail baths, lkro-xki-clrnmji hydrocortisone cream to apply in tapering corticosteroids as prescribed. Immunizations Immunization Administration Dates Next Due DTP / HiB 02/01/1996,1995,1995 DTaP 02/23/2001,05/23/1997 Hep A, Adult 04/28/2013 Hep A, Unspecified 02/04/2010 Hep B, Unspecified 04/25/1996,1995, 996 HiB 10/31/1996 IPV 02/23/2001 Influenza, Live, Intranasal, Quadrivalent 04/28/2013 Influenza, Quadrivalent, Spl it, Preservative Free, Intradermal 05/03/2015 Influenza, Quadrivalent, Spl it, Preservative Free, Intramuscular 05/23/2018 Influenza, Unspecified 08/09/2024(Deferr ed: Patient Refused),08/03/2023(Deferred: Patient Refused),04/11/2022(Deferred: Patient Refused),04/11/2018(Deferred: Patient Refused) MMR 02/23/2001,10/31/1996 Meningococcal ACWY, Unspecified 02/27/2009 Meningococcal Conjugate (Menveo) 04/28/2013 OPV 05/23/1997,1995,1995 Tdap 03/03/2006 Social History Tobacco Use Types Packs/Day Years Used Date Smoking Tobacco: Never Smokeless Tobacco: Never Tobacco Cessation:Counseling Given: Not Answered Alcohol Use Standard Drinks/Week Comments Yes 0 (1 standard drink = 0.6 oz pur e alcohol) rarely AUDIT-C Answer Date Recorded Q1: How often do you have a drink containing alc ohol? Monthly or less 06/07/2023 Q2: How many drinks containi ng alcohol do you have on a typical day when you are drinking? 1 or 2 06/07/2023 Q3: How often do you have si x or more drinks on one occasion? Never 06/07/2023 PHQ-2 Answer Date Recorded PHQ-2 Total Score (If total score is 3 or more points, staff should administer the PHQ-9) 0 08/09/2024 Comments No Sex and Gender Information Value Date Recorded Sex Assigned at Not on file Legal Sex Female 11:28 PM SKIVER MACHINE OPERATOR Gender Identity Not on file Sexual Orientation Not on file Last Filed Vital Signs Vital Sign Reading Time Taken Comments Blood Pressure 98/68 08/09/2024 8:15 AM SKIVER MACHINE OPERATOR Pulse 74 08/09/2024 8:15 AM SKIVER MACHINE OPERATOR Temperature 36.7 C (98.1 F) 08/09/2024 8:15 AM SKIVER MACHINE OPERATOR Respiratory Rate 16 08/09/2024 8:15 AM SKIVER MACHINE OPERATOR Oxygen Saturation 98% 08/09/2024 8:15 AM SKIVER MACHINE OPERATOR Inhaled Oxygen Concentration - - Weight 49.9 kg (110 lb) 08/09/2024 8:15 AM SKIVER MACHINE OPERATOR Height 160.5 cm (5' 3.19) 08/09/2024 8:15 AM CS T Body Mass Index 19.37 08/09/2024 8:15 AM SKIVER MACHINE OPERATOR Plan of Treatment Not on file Procedures Procedure Name Priority Date/Time Associated Diagnosis Comments HEPATITIS C ANTIBODY Routine 08/25/2024 10:32 AM SKIVER MACHINE OPERATOR Need for hepatitis C screening test HM PAP SMEAR WITH HPV Routine 11/18/2022 from Last 3 Months or Most Recently Relevant to Health Maintenance Results * Hepatitis C antibody Blood (08/25/2024 10:32 AM SKIVER MACHINE OPERATOR) Hep C Ab Nonreactive Nonreactive Comment: Interpretive Data Nonreactive: Antibodies to HCV not detected. Does NOT exclude the possibility of recent exposure to HCV. Equivocal: Equivocal for HCV antibodies. Supplemental molecular testing will be automatically performed to determine infection status in accordance with current CDC screening recommendations. Reactive: Positive for HCV antibodies. This may represent current or past HCV infection. Supplemental molecular testing will be automatically performed to determine current infection status in accordance with current CDC screening recommendations. Interpretive data was last revised on 2019. Testing performed by: [facility], [address] [place] [address], [place]., [address] Blood 08/25/2024 10:3 2 AM SKIVER MACHINE OPERATOR 08/25/2024 1:36 PM SKIVER MACHINE OPERATOR Juhi King NP LAB MICROBIOLOGY - GENE RAL ORDERABLES Final Result [facility] Department of [place] [address] * PAP SMEAR WITH HPV (11/18/2022) us Generic External Data Provider HEALTH MAINTENANC E Final Result from Last 3 Months or Most Recently Relevant to Health Maintenance Insurance [employer] SIG [id number] [facility] AETNA [facility] PPO Care Teams Windows Software Engineer Relationship Specialty Start Date End Date Juhi King NP [address] [place] [address] [address] [place] [id number] PCP - General Family Medicine 08/09/24 Keith Grant MD [address] [place] [address] Referring Physician Obstetrics and Gynecology 08/09/24
--- OUTSIDE RECORDS SUMMARY | 2025-01-24 02:33 | XMS_ITS | Clinical Summary ---
Author Organization [facility] Building A Address [address] [place] [address] Care Team Providers Care Machine Cell Tuber Name Role Phone Juhi King NP Primary Care Provider Keith Grant MD Unavailable [phone] Allergies Active Allergy Reactions Criticality Noted [...] 08/09/2024 Assessment & Plan (08/09/2024 8:33 AM ADOPTION WORKER): Wt Readings from Last 3 Encounters: 08/09/24 [...] 09/22/2023 Assessment & Plan (08/09/2024 8:41 AM ADOPTION WORKER): -chronic, controlled -patient currently takes a digestion [...] 08/03/2023 Assessment & Plan (08/03/2023 2:22 PM ADOPTION WORKER): Acute on chronic problem-this is a recurring problem with worsening x 1 day with pain post fall on ice Ordered X-ray lumbar spine Ordered PT eval and treat for low back pain Alternate ice and heat therapy at 20 minute intervals Continue Celebrex 200 mg as directed OTC Tylenol- use as directed Continue to monitor Endometriosis 04/29/2023 Assessment & Plan (08/09/2024 8:47 AM ADOPTION WORKER): -Chronic, controlled -Follows with sales program manager -Currently takes oral contraceptive -Previous laparoscopy procedure -Up-to-date on Pap smear -Continue current treatment plan with specialist Assessment & Plan (08/03/2023 2:23 PM ADOPTION WORKER): Condition is stable Follows OBGYN Follow-up with Dr. Grant as scheduled Continue with current oral control as directed by your OBGYN Ordered PT eval and tx for pelvic floor exercise Continue with TENs unit as directed by mold filling operator Assessment & Plan (04/29/2023 8:06 AM CDT): Condition is stable Follows OBGYN Will obtain records from [facility]-patient reports surgery in November of 2022 Follow-up with Dr. Grant as scheduled Continue with current oral control as directed by your OBGYN Preventative health care 04/29/2023 Assessment & Plan (08/09/2024 8:49 AM ADOPTION WORKER): - New or chronic worsening conditions: Recent [...] Primary focal hyperhidrosis, axilla;Recorded Elsewhere: No Location: [facility] Source: EHR Chronic: N Practice ID: [id number] Billable Time: 08:45:00 AM Resolved Problems Problem Noted Date Diagnosed Date Resolved Date Pharyngitis with viral syndrome 06/07/2023 08/09/2024 Assessment & Plan (06/07/2023 12:17 PM ADOPTION WORKER): Strep negative. Discussed tonsil stones and throat irritation. Recommended water intake and salt gargles. Recommended steroid nasal spray [id number] for ear popping or eustachian tube dysfunction. Can take [id number] antihistamines as well. Can have referral to [...] 04/29/2023 Assessment & Plan (08/15/2018 2:52 PM ADOPTION WORKER): Requested by infectious disease for biopsy of these lesions. The patient was informed the procedure, risks, benefits, to which she agrees. Will have in office procedure today. Tinea corporis 07/04/2018 01/08/2020 Assessment & Plan (07/04/2018 8:47 AM ADOPTION WORKER): It does not appear as though the ketoconazole caused her acute pruritic rash and ringworm is slightly moist in office. I encouraged her to apply ketoconazole cream twice daily while tapering down off corticosteroids to ensure clearance of tinea infection. Indications to follow up in office was provided Irritant contact dermatitis 07/04/2018 01/08/2020 Assessment & Plan (07/04/2018 8:47 AM ADOPTION WORKER): Continue with daily antihistamine use, will mail baths, [id number] hydrocortisone cream to apply in tapering corticosteroids [...] Conjugate (Menveo) 04/28/2013 OPV 05/23/1997,1995,1995 Tdap 03/03/2006 Surgical History Surgery Date Site/Laterality Comments LAPAROSCOPY tissue removal; endometriosis - 2022 Medical History Medical History Date Comments Change in multiple pigmented skin lesions 2018 GERD (gastroesophageal reflux disease) Anemia Menstrual problem Endo diagnosed this year Family History Medical History Relation Name Comments Hyperlipidemia Father Hyperlipidemi a; Cancer Maternal Grandfather [place] Colon cancer Maternal Grandfather Juan M Prostate cancer Maternal Grandfather Juan M Breast cancer Maternal Grandmother Margarita Cancer Maternal Grandmother Margarita Graves' disease Maternal Half-Sister Depression Mother Lindsay Depression; Hypertension Mother Lindsay Hypertension; Bone cancer Paternal Grandfather Cancer Paternal Grandfather Cancer Paternal Great-Grandfather Stomach cancer Paternal Great-Grandfather Relation Name Status Comments Father Alive Maternal Grandfather Juan M Maternal Grandmother Margarita Maternal Half-Sister Alive Mother Lindsay Alive Paternal Grandfather Paternal Grandmother Alive Paternal Great-Grandfather Social History Tobacco Use Types Packs/Day Years [...] on file Legal Sex Female 11:28 PM ADOPTION WORKER Gender Identity Not on file Sexual Orientation Not on file Obstetrics History Last Filed Vital Signs Vital Sign Reading Time Taken Comments Blood Pressure 98/68 08/09/2024 8:15 AM ADOPTION WORKER Pulse 74 08/09/2024 8:15 AM ADOPTION WORKER Temperature 36.7 C (98.1 F) 08/09/2024 8:15 AM ADOPTION WORKER Respiratory Rate 16 08/09/2024 8:15 AM ADOPTION WORKER Oxygen Saturation 98% 08/09/2024 8:15 AM ADOPTION WORKER Inhaled Oxygen Concentration - - Weight 49.9 kg (110 lb) 08/09/2024 8:15 AM ADOPTION WORKER Height 160.5 cm (5' 3.19) 08/09/2024 8:15 AM CS T Body Mass Index 19.37 08/09/2024 8:15 AM ADOPTION WORKER Plan of Treatment Health Maintenance Due Date Last Done Comments DTaP/Tdap/Td Vaccine (7 - Td or Tdap) 03/03/2016 03/03/2006, 02/23/2001, 05/23/1997, Additional history exists Influenza Vaccine (Season Ended) 2025 05/23/2018, 05/03/2015, 04/28/2013 Covid-19 Vaccine ( season) 2025 02/27/2021, 02/05/2021 Postponed from 03/12/2024 (Patient declined, but will receive in the future) Depression Screening 08/09/2025 08/09/2024, 08/03/2023, 06/07/2023, Additional history exists Regular Well Visit/Exam 18-64 08/09/2025 08/09/2024, 08/09/2024, 04/29/2023, Additional history exists Cervical Cancer Screening 11/18/2025 11/18/2022 Hepatitis B Screening Completed 04/25/1996 , 1995, 1995 Hepatitis C Screening Completed 08/25/2024 HPV Vaccines Aged Out No longer eligi ble based on patient's age to complete this topic Pneumococcal vaccine <65 Aged Out No longer eligible based on patient's age to complete this topic Varicella Vaccines Discontinued Procedures Procedure Name Priority Date/Time Associated Diagnosis Comments HEPATITIS C ANTIBODY Routine 08/25/2024 10:32 AM ADOPTION WORKER Need for hepatitis C screening test HM PAP SMEAR WITH HPV Routine 11/18/2022 from Last 3 Months or Most Recently Relevant to Health Maintenance Results * Hepatitis C antibody Blood (08/25/2024 10:32 AM ADOPTION WORKER) Hep C Ab Nonreactive Nonreactive Comment: Interpretive [...] last revised on 2019. Testing performed by: [facility], [address] [place] [address], [place]., [address] Blood 08/25/2024 10:3 2 AM ADOPTION WORKER 08/25/2024 1:36 PM ADOPTION WORKER us Juhi King NP LAB MICROBIOLOGY - GENE RAL ORDERABLES Final Result [facility] ([facility]) [facility] Department [place] [address] * HM PAP SMEAR WITH HPV (11/18/2022) us Generic External Data Provider HEALTH MAINTENANC E Final Result from Last 3 Months or Most Recently Relevant to Health Maintenance Insurance [employer] SIG [id number] [facility] PPO Care Teams Machine Cell Tuber Relationship Specialty Start Date End Date Juhi King NP [address] [facility] [address] [address] [place] [id number] PCP - General Family Medicine 08/09/24 Keith Grant MD [address] [place] [address] Referring Physician Obstetrics and Gynecology 08/09/24
[2025-01-24] MEDS: ACETAMINOPHEN 500 MG TABLET 1000 MG PO (06:33)
[2025-01-24] MEDS: LACTATED RINGERS 1,000 ML 30 ML IV CONT ×2 (06:35→09:01)
[2025-01-24] MEDS: KETOROLAC 15 MG/ML VIAL (*BKC) IV PUSH (06:37)
[2025-01-24 06:38] LABS: BEDSIDEPREGUCG Negative (Negative)
--- NOTE | 2025-01-24 07:15 | P.PNAN_ITS ---
Anes - Initial Pre Proc Eval Procedure: Operation Date: 01/24/25 07:30 Proposed Procedures p Diagnostic Laparoscopy - Keith Grant MD Date/Time: 01/24/25 07:15 Surgeon: Keith Grant MD Pre Op Diagnosis: Endometriosis Patient Data Age: 29 Gender: F Height: 1.52 m Weight: 50.4 kg Last Vital Signs Temp 98.2 F 01/24/25 06:03 Pulse 90 01/24/25 06:03 Resp 16 01/24/25 06:03 BP 115/82 01/24/25 06:03 Pulse Ox 100 01/24/25 06:03 O2 Del Method Room Air 01/24/25 06:03 Allergies Allergy/AdvReac Type Severity Reaction Status Date / Time kiwi Allergy Mild RASH Verified 01/24/25 06:35 pistachio nut Allergy Mild Rash Verified 01/24/25 06:35 Home Medications ?Medication ?Instructions ?Recorded ?Confirmed ?Type celecoxib 200 mg capsule 200 mg PO BID PRN Pain 11/10/22 01/23/25 History albuterol sulfate 90 mcg/actuation 2 inh inhalation Q8H PRN shortness 01/23/25 01/23/25 History aerosol inhaler (Ventolin HFA) of breath or wheezing Laboratory Tests 01/24/25 06:37 POC Urine HCG, Qual Negative (Negative) Patient hx anesthesia problems: post op nausea/vomiting Family hx anesthesia problems: none Results Review: All pre-operative results and documents have been reviewed as part of the pre- operative evaluation. [facility] Social History Social History Smoking status: Never smoker Alcohol intake: current Alcohol use details: 1/MONTH Substance use: never Substance use type: does not use Living arrangements: with family Spiritual care concerns: No Anes - Eval Final PreProcedure Day of Procedure 01/24/25 07:15 Patient weight: normal Heart: regular rate and rhythm Lungs: clear to auscultation Airway: Mallampati scale class II Neurological: alert and oriented Last oral intake: >/= 8 hours ASA classification: II Emergent: no Anesthetic plan: proceed Anesthesia type and monitoring: general ETT and standard monitoring Results Review: All pre-operative results and documents have been reviewed as part of the pre- operative evaluation. Informed Consent: The patient's anesthetic plan and its attendant risks and benefits were discussed with the patient/family/POA. Questions were solicited and answers provided to the satisfaction of the patient/family/POA.
--- NOTE | 2025-01-24 07:17 | WPDHPUPDATE1 ---
History and Physical Update Update Date/Time: 01/24/25 07:17 History and Physical has been reviewed, including an updated exam of the patient. There are NO changes in the patient's condition. Risks, benefits, and alternatives have been discussed and questions answered. Patient agrees to proceed with procedure.
--- NOTE | 2025-01-24 07:20 | P.HP_ITS ---
H&P: HPI History of Present Illness Date/Time: 01/24/25 07:20 Chief Complaint: Pelvic pain Narrative: This patient is a 29-year-old female with endometriosis and pelvic pain. We agreed to perform diagnostic laparoscopy. She understands the risks, benefits, and alternatives. She has completed informed consent process and his were ready to proceed. The patient understands the details of the procedure. The procedure has been explained in detail. She understands the risks. She understands that injuries may occur that result in hospitalization, more surgery, and severe illness. She understands risk of hemorrhage and infection. She denies any chest pain or shortness of breath. She denies any nausea, vomiting, fever, chills. Review of Systems Review of Systems: All systems reviewed & are unremarkable except as noted in HPI and below Constitutional: Constitutional: Denies chills, Denies fatigue, Denies fever(s) and Denies weakness Eyes: Eyes: Denies blurry vision, Denies change in vision, Denies loss of amarilis pheral vision, Denies loss of vision, Denies other visual disturbances and Denies eye pain ENT: Denies vertigo, Denies dizziness, Denies hearing loss, Denies mouth pain, Denies nasal obstruction, Denies neck mass and Denies neck pain Cardiovascular: Cardiovascular: Denies chest pain, Denies diaphoresis, Denies syncope, Denies leg edema and Denies dyspnea Respiratory: Respiratory: Denies chest congestion, Denies cough, Denies hemoptysis, Denies dyspnea and Denies wheezing Gastrointestinal: Gastrointestinal: Denies abdominal pain, Denies constipation, Denies diarrhea, Denies nausea and Denies vomiting Genitourinary: Genitourinary: Denies hematuria, Denies change in libido, Denies nocturia, Denies genital lesions, Denies flank pain and Denies urinary urgency Musculoskeletal: Musculoskeletal: Denies abnormal gait, Denies back pain, Denies myalgias, Denies arthralgias, Denies joint swelling, Denies muscle weakness and Denies neck pain Integumentary/Breasts: Skin/Breast: Denies swelling, Denies breast pain, Denies breast mass, Denies dry skin, Denies nipple discharge, Denies unusual bruising and Denies jaundice Neurologic: Denies Neuro-related abnormal movements, Denies Abnormal speech present, Denies abnormal gait, Denies behavioral changes, Denies confusion, Denies vertigo, Denies dizziness, Denies syncope, Denies loss of vision, Denies memory loss, Denies convulsions and Denies weakness Psychiatric: Psychiatric: Denies abnormal sleep pattern, Denies behavioral changes, Denies change in libido, Denies confusion, Denies depression, Denies an hedonia and Denies memory loss Endocrine: Endocrine: Reports no additional endocrine complaints, Denies change in libido and Denies fatigue Hematologic/Lymphatic: Hematologic/Lymphatic: Reports no additional hematologic/lymphatic complaints Allergic/Immunologic: Allergic/Immunologic: Reports no additional allergic/immunologic complaints and Denies wheezing [facility] Social History Social History Smoking status: Never smoker Alcohol intake: current Alcohol use details: 1/MONTH Substance use: never Substance use type: does not use Living arrangements: with family Spiritual care concerns: No Meds Home Medications and Allergies Home Medications ?Medication ?Instructions ?Recorded ?Confirmed ?Type celecoxib 200 mg capsule 200 mg PO BID PRN Pain 11/10/22 01/23/25 History albuterol sulfate 90 mcg/actuation 2 inh inhalation Q8H PRN shortness 01/23/25 01/23/25 History aerosol inhaler (Ventolin HFA) of breath or wheezing Allergies Allergy/AdvReac Type Severity Reaction Status Date / Time kiwi Allergy Mild RASH Verified 01/24/25 06:35 pistachio nut Allergy Mild Rash Verified 01/24/25 06:35 Vital Signs Vital Signs - 24 hr 01/24/25 06:03 Temperature 98.2 F Pulse Rate 90 Respiratory Rate 16 Blood Pressure 115/82 Pulse Oximetry 100 Oxygen Delivery Room Air Exam Const: General: cooperative, healthy appearing, comfortable and no acute distress Orientation/consciousness: oriented to person, oriented to place and oriented to time HENMT: Head: normal to inspection Ears: external ears normal Face/Nose/Sinus: Normal external nose present and normal facial exam Face and sinus: normal facial exam Eyes: General: appearance normal, both eyes and all related structures Neck: Neck: normal visual inspection, trachea midline and supple Resp: Auscultation: clear to auscultation bilaterally, no crackles, no rales, no rhonchi and no wheezes Cardio: Rate: regular rate Rhythm: regular rhythm Heart sounds: no click, no murmurs and no rubs GI: GI Palp: No abdominal tenderness, No Soft to palpation, No Tenderness to palpation present (GI) and No Palpable mass present Auscultation: normal bowel sounds Skin: General skin exam: normal color and no rashes or lesions noted Neuro: General: oriented to person, oriented to place and oriented to time Extrem: General: normal to inspection, no joint enlargement, no clubbing, cyanosis or edema, no pedal edema and no calf tenderness Psych: Appearance: grossly normal Mental Status: mental status grossly normal Speech and movement: Normal speech and movement present Assessment and Plan Assessment and plan (1) Endometriosis: Code(s): N80.9 - Endometriosis, unspecified Status: Acute (2) Pelvic pain: Code(s): R10.2 - Pelvic and perineal pain Status: Acute Plan This patient is a 29-year-old female with endometriosis and pelvic pain. We agreed to perform diagnostic laparoscopy. She understands the risks, benefits, and alternatives. She has completed informed consent process and his were ready to proceed.
[2025-01-24] MEDS: SCOPOLAMINE 1 MG PATCH 1 PATCH TRANSDERM (07:41)
[2025-01-24] MEDS: fentaNYL CITRATE INJ (*CRX) 100 MCG/2 ML VIAL 25 MCG IV PUSH (09:21)
--- NOTE | 2025-01-24 09:26 | P.OP_ITS ---
Procedure Note - Detailed Date of Procedure 01/24/25 Pre-op Diagnosis Endometriosis pelvic pain Post-op Diagnosis Same (Pelvic adhesions left ovarian cyst) Procedure Performed Diagnostic laparoscopy, left ovarian cystectomy, adhesiolysis-1 hour Surgeon Keith Grant MD Anesthesia General Indications Pelvic pain Findings Dense adhesions at the left ovary and pelvic side, the left ovary was densely adherent to the left pelvic sidewall overlying the ureter. hemorrhagic left ovarian cyst. Description of Procedure The patient was taken to the operating room. She was prepped and draped in the dorsal lithotomy position after induction general anesthesia. A 5 mm incision was made with a scalpel on the abdominal skin in the left upper quadrant of the abdomen. A 5 mm trocar was inserted into the intra-abdominal cavity under direct visualization the scope. In the same fashion a 5 mm left lower quadrant trocar was inserted and a 5 mm infraumbilical trocar was inserted. One hour of adhesiolysis was performed. The left ovary from the left pelvic sidewall. It was overlying the ureter. Care was taken to perform ureterolysis throughout that area. Ureter was intact and unharmed throughout t he procedure. Completely visualized. Left ovarian cystectomy was performed. This was done a sharp and blunt dissection and cautery. Thorough irrigation was performed of the pelvis. Hemostatic agent was applied after the resection. Interceed adhesion barrier was placed along the left pelvic sidewall. The pelvis was irrigated. The pneumoperitoneum was reduced. The trocars were removed. Skin was closed with subcuticular 4 micro. The patient's incisions were covered with Dermabond. She was taken recovery room in stable condition. Sponge lap and needle counts were correct x2. Pathology None sent Complications No immediate complications Condition Stable Disposition Same day
[2025-01-24] MEDS: oxyCODONE HCL (*CRX) 5 MG TAB IR PO (10:00)
== END 2025-01-24 10:45 | disposition home or self-care (01) ==
PROVIDERS: Visit Provider Obstetrics & Gynecology
PROC: (CPT 49320; principal; 2025-01-24 07:30)
DX: N83.202 Unspecified ovarian cyst, left side (principal); N73.6 Female pelvic peritoneal adhesions (postinfective); R10.2 Pelvic and perineal pain
CPT/HCPCS: 58662; A9270; J1100; J1596; J1885; J2003; J2250; J2405; J2704; J3010; J7120